=== PATIENT | female | born 1980 ===

== ENCOUNTER 2024-08-22 05:15 | Day surgery (SDC) | payer OTHER ==
[2024-08-12 13:36] VITALS: BP 123/77
[~2024-08-22] VITALS: Ht 167.6 cm; Wt 72.6 kg
[2024-08-22] MEDS ORDERED: POVIDONE-IODINE 118 ML BOTT TOP ONE (07:18)
[2024-08-22] MEDS ORDERED: ONDANSETRON HCL 2 MG/ML VIAL IV ONE (08:45)
[2024-08-22] MEDS ORDERED: MORPHINE SULFATE 4 MG/ML VIAL IV ONE (08:45)
== END 2024-08-22 14:40 | disposition home or self-care (01) ==
LOC: CIR.AMB 05:15
PROVIDERS: ATTEND Obstetrics & Gynecology
DX: N84.0 Polyp of corpus uteri (principal); N93.8 Other specified abnormal uterine and vaginal bleeding; Z88.6 Allergy status to analgesic agent